=== PATIENT | male | born 1955 | race Two or more races ===

== ENCOUNTER → 2018-04-30 | Outpatient (CLI) | payer MEDICARE ==
[~2018-04-30] MED LIST: IOHEXOL 300 MG/ML 100ML VIAL. IV ONE; IOHEXOL 300 MG/ML 50 ML VIAL. PO ONE; LOVA20TA2 PO; METF500T16 PO; TAMS0.4C2 PO
--- NOTE | 2018-04-30 14:28 | KCIC ---
CT ABD PELV W/ORAL IV CONTRAST Indication: Right upper quadrant pain. Flank pain. Pain for 3 weeks. History of pancreatitis. Exposure: One or more of the following individualized dose reduction techniques were utilized for this examination: 1. Automated exposure control 2. Adjustment of the mA and/or kV according to patient size 3. Use of iterative reconstruction technique. Comparison: November 15, 2007 Contrast: Intravenous contrast was given. Oral contrast was given. FINDINGS: Lower thorax: Small right pleural effusion. There is some irregular opacity in the right lower lobe, greatest posteriorly. Linear opacities within the right middle lobe. Liver: Unremarkable Spleen: Unremarkable Pancreas: Unremarkable Adrenals: No evidence of mass. Kidneys: Small low-density lesion left kidney measures 11 mm, most likely a small cyst. Similar lesion was seen on prior study, but only measured about 6 mm at that time. Urinary tracts: No hydronephrosis. Gallbladder: No calcified stone Lymph nodes: No significant enlargement Vessels: * Aorta: Calcified with mild mural thrombus. * Major aortic branches: Mildly calcified. * Portal venous: Patent GI tract: Diverticulosis. Mild sigmoid colon wall thickening may be due to muscular hyperplasia. No evidence of pericolic inflammatory stranding to suggest an acute colitis. No bowel obstruction. There is a tiny air pocket located between the medial wall of the descending duodenum and the pancreatic head, measuring 8 mm. Similar finding was seen on the prior study. This could represent a small duodenal diverticulum. Small ulcer is possible. Appendix is not clearly visualized. Reproductive organs: Prostate gland is enlarged, measures 5.5 cm wide. Central calcification. Urinary bladder: Unremarkable. Peritoneum: No evidence of pneumoperitoneum. No free fluid. Abdominal wall:Unremarkable Spine: Degenerative spondylosis Bones: Degenerative changes at the hips. IMPRESSION: 1. Small right pleural effusion. Opacities within the right lung base could represent infiltrate but other etiologies are not excludable. Consider short-term follow-up CT chest. 2. No evidence of acute pancreatitis. 3. Small air pocket between the duodenum and pancreatic head. Considerations include a duodenal reticulin. Also consider less likely given the lack of adjacent inflammatory type change. 4. Prostatomegaly. Electronically signed by: Wang Mitchell MD (04/30/2018 2:25 PM) [email or web address]
== END | disposition home or self-care (01) ==
LOC: KCIC CT 11:06
PROVIDERS: ATTEND Family Medicine
DX: K57.90 Diverticulosis of intestine, part unspecified, without perforation or abscess without bleeding (principal); N40.0 Benign prostatic hyperplasia without lower urinary tract symptoms; M16.0 Bilateral primary osteoarthritis of hip; J90 Pleural effusion, not elsewhere classified; M47.9 Spondylosis, unspecified; I21.9 Acute myocardial infarction, unspecified; R91.8 Other nonspecific abnormal finding of lung field; Z87.19 Personal history of other diseases of the digestive system
CPT/HCPCS: 74177; 82565; Q9967

== ENCOUNTER → 2018-06-11 | Outpatient (CLI) | payer MEDICARE ==
[~2018-06-11] MED LIST changes: -IOHEXOL 300 MG/ML 100ML VIAL. IV ONE; -IOHEXOL 300 MG/ML 50 ML VIAL. PO ONE
--- NOTE | 2018-06-11 11:45 | KCIC ---
CT CHEST WO CONTRAST dated 06/11/2018 12:00 AM Indication: Cough, abnormal chest x-ray, right-sided pain. Comparison: 11/15/2007 Technique: Contiguous axial imaging of the chest performed without the administration of intravenous contrast. One or more of the following individualized dose reduction techniques were utilized for this examination: 1. Automated exposure control 2. Adjustment of the mA and/or kV according to patient size 3. Use of iterative reconstruction technique Findings: Heart size within normal limits. No pericardial effusion. Scattered coronary calcifications. Mild ectasia of the ascending thoracic aorta measuring 3.8 cm transverse. No mediastinal, hilar or axillary lymphadenopathy. Borderline enlarged precarinal lymph node measures 8 mm short axis. There is also a borderline enlarged right axillary lymph node measuring 8 mm short axis. Thyroid gland unremarkable. There is mild wall thickening of the thoracic esophagus. Central airways are patent. There is linear scar or atelectasis in the anterior right upper lobe and right middle lobe. There is also an ovoid area of consolidation at the posterior right lower lobe that measures approximately 5.8 x 1.7 cm transverse and AP dimensions. There is associated pleural thickening with a tiny right pleural effusion. Left lung is clear. Mild emphysema. Limited images of the upper abdomen unremarkable. No significant bony abnormality. Multilevel spondylosis. IMPRESSION: 1. Ovoid area of consolidation at the dependent right base with associated pleural thickening and small right pleural effusion. This most likely represents rounded atelectasis from prior inflammatory process. An underlying mass cannot be completely excluded. Suggest follow-up imaging in 3-6 months to ensure stability/resolution. 2. Mild linear scar or atelectasis in the right upper lobe and right middle lobe 3. Mild emphysema. 4. Coronary artery calcifications and mild aortic ectasia. 5. Mild wall thickening of the thoracic esophagus, nonspecific. Electronically signed by: Wang Felix MD (06/11/2018 11:42 AM) [id number]
== END | disposition home or self-care (01) ==
LOC: KCIC CT 10:23
PROVIDERS: ATTEND Family Medicine
DX: J43.8 Other emphysema (principal); I25.10 Atherosclerotic heart disease of native coronary artery without angina pectoris; I77.810 Thoracic aortic ectasia; J90 Pleural effusion, not elsewhere classified; M47.894 Other spondylosis, thoracic region; K22.8 Other specified diseases of esophagus
CPT/HCPCS: 71250

== ENCOUNTER → 2018-10-18 | Outpatient (CLI) | payer MEDICARE ==
--- NOTE | 2018-10-18 11:54 | KCIC ---
CT CHEST WO CONTRAST Indication: Lung nodule follow-up. Exposure: One or more of the following individualized dose reduction techniques were utilized for this examination: 1. Automated exposure control 2. Adjustment of the mA and/or kV according to patient size 3. Use of iterative reconstruction technique. Technique: Standard imaging without intravenous contrast. Comparison: June 11, 2018 FINDINGS: Ascending aorta measures 3.6 cm diameter, not significantly changed from similar prior slice, compatible with ectasia. Mild atherosclerotic calcifications. Mild coronary artery calcification. No pericardial effusion. No significant lymph node enlargement. The thyroid is symmetric. Mild esophageal wall thickening is identified, but less prominent than on prior study. Small right pleural effusion or scarring is unchanged. Ovoid area of opacity or consolidation in the posterior right lower lobe is unchanged as compared with previous exam. Linear scarring or atelectasis in the anterior right upper lobe and right middle lobe are again identified. The trachea and central main bronchi are patent. Scans through the upper abdomen are limited due to technique but no obvious acute abnormality. Degenerative spondylosis. IMPRESSION: 1. Area of opacity or consolidation in the posterior right lower lobe, with adjacent pleural effusion or scarring is unchanged. 2. Ascending aortic ectasia is unchanged. 3. Esophageal wall thickening is slightly improved. Electronically signed by: Wang Mitchell MD (10/18/2018 11:51 AM) [email or web address]
== END | disposition home or self-care (01) ==
LOC: KCIC 09:59
PROVIDERS: ATTEND Internal Medicine Pulmonary Disease
DX: R91.1 Solitary pulmonary nodule (principal); R91.8 Other nonspecific abnormal finding of lung field; I77.810 Thoracic aortic ectasia; I25.10 Atherosclerotic heart disease of native coronary artery without angina pectoris; I70.0 Atherosclerosis of aorta; M47.894 Other spondylosis, thoracic region; I10 Essential (primary) hypertension; E11.9 Type 2 diabetes mellitus without complications; Z87.891 Personal history of nicotine dependence
CPT/HCPCS: 71250

== ENCOUNTER → 2019-03-10 | Outpatient (CLI) | payer MEDICARE ==
--- NOTE | 2019-03-10 15:47 | KCIC ---
CT CHEST WO CONTRAST History: Right lower lobe opacity seen on prior CT. Technique: Noncontrast CT of the chest was performed. Coronal and sagittal reconstructions were performed. Exposure: One or more of the following individualized dose reduction techniques were utilized for this examination: 1. Automated exposure control 2. Adjustment of the mA and/or kV according to patient size 3. Use of iterative reconstruction technique. Comparison: CT October 18, 2018 and June 11, 2018 Findings: Chest: No pathologic axillary, mediastinal or hilar adenopathy. Minimal coronary artery calcifications. Right lower lobe opacity, unchanged compared to June 11, 2018. Mild right middle lobe subsegmental atelectasis or scarring. Small right pleural effusion, slightly decreased. No suspicious pulmonary nodule. No new consolidation. Upper abdomen: The imaged upper abdomen is unremarkable. Bones: No pathologic osseous lesions. Impression: 1. Unchanged right lower lobe peripheral opacity compared to 2018, may represent rounded atelectasis or scarring. 2. Mild right middle lobe subsegmental atelectasis or scarring. 3. Small right pleural effusion, decreased. Electronically signed by: Vitaly Ngo DO (03/10/2019 3:45 PM) [id number]
== END | disposition home or self-care (01) ==
LOC: KCIC CT 13:51
PROVIDERS: ATTEND Internal Medicine Pulmonary Disease
DX: J90 Pleural effusion, not elsewhere classified (principal); I25.10 Atherosclerotic heart disease of native coronary artery without angina pectoris
CPT/HCPCS: 71250

== ENCOUNTER → 2020-09-29 | Outpatient (CLI) | payer MEDICARE ==
--- NOTE | 2020-09-29 09:54 | KCIC ---
Bilateral lower extremity ABIs for periodic limb movement disorder. TECHNIQUE AND FINDINGS: Bilateral ABIs are obtained. The SILVANA on the right is 1.02 and on the left 0.9 5. These are normal. IMPRESSION: 1. Normal bilateral lower extremity ABIs. Electronically signed by: Renan Escamilla MD (09/29/2020 9:51 AM) [id number]
== END ==
LOC: KCIC US 08:00
PROVIDERS: ATTEND Family Medicine
DX: G47.61 Periodic limb movement disorder (principal); R25.2 Cramp and spasm; M79.604 Pain in right leg; M79.605 Pain in left leg
CPT/HCPCS: 93922

== ENCOUNTER → 2021-10-17 | Outpatient (CLI) | payer MEDICARE ==
--- NOTE | 2021-10-17 15:29 | KCIC ---
EXAM: Head CT without contrast. HISTORY: Headache. TECHNIQUE: Computed tomographic images of the head were obtained without contrast. *One or more of the following individualized dose reduction techniques were utilized for this examina tion: 1. Automated exposure control. 2. Adjustment of the mA and/or kV according to patient size. 3. Use of iterative reconstruction technique. COMPARISON: None. FINDINGS: There is no acute or subacute extra-axial or intraparenchymal hemorrhage. There is no mass effect or midline shift. There is no hydrocephalus. The crump-white matter differentiation pattern is intact. There is ethmoid sinus mucosal thickening. T here is a left zarina bullosa. The orbits are unremarkable. There is a small amount of bilateral mast oid fluid. There is no suspicious calvarial lesion. IMPRESSION: No acute intracranial findings. Electronically signed by: Camille Clifton MD (10/17/2021 3:27 PM) [id number]
== END ==
LOC: KCIC CT 15:10
PROVIDERS: ATTEND Family Medicine
DX: J32.2 Chronic ethmoidal sinusitis (principal); R51.9 Headache, unspecified
CPT/HCPCS: 70450